=== PATIENT | male | born 1990 | race Caucasian/White ===

== ENCOUNTER 2016-09-07 19:36 | Emergency (ER) | payer SELFPAY ==
[~2016-09-07] VITALS: Ht 180.3 cm; Wt 115.0 kg
[2016-09-07 19:38] VITALS: BP 140/82; PULSE 97; RESP 16; TEMP 97.9; O2SAT 98
[2016-09-07] MEDS ORDERED: ONDANSETRON HCL 4 MG/2 ML VIAL IV ONE (23:15)
[2016-09-07] MEDS ORDERED: SODIUM CHLOR 0.9% 1000 ML INJ 1,000 ML IV ONE (23:15)
[2016-09-07 23:44] LABS: AUTOMATED NEUTROPHIL # 3.8 TH/MM3 (1.8-7.7); BASOPHIL # 0.1 TH/MM3 (0-0.2); BASOPHIL % 0.9 % (0.0-2.0); EOSINOPHIL # 0.4 TH/MM3 (0-0.4); EOSINOPHIL % 4.5 % (0.0-4.0); HEMATOCRIT 44.1 % (39.0-51.0); HEMO FLAGS DIFF FINAL; LYMPHOCYTE # 2.5 TH/MM3 (1.0-4.8); MEAN CELL VOLUME 82.2 FL (80.0-100.0); MEAN CORPUSCULAR HEMOGLOBIN 28.1 PG (27.0-34.0); MEAN CORPUSCULAR HGB CONC 34.2 % (32.0-36.0); MONO % 17.6 % (0.0-8.0); PLATELET COUNT 240 TH/MM3 (150-450); RED BLOOD COUNT 5.37 MIL/MM3 (4.50-5.90); RED CELL DISTRIBUTION WIDTH 13.5 % (11.6-17.2); WHITE BLOOD COUNT 8.2 TH/MM3 (4.0-11.0)
[2016-09-08 00:03] LABS: ALT (GPT) 27 U/L (12-78); ANION GAP 8 MEQ/L (5-15); AST (GOT) 20 U/L (15-37); BICARBONATE 26.7 MEQ/L (21.0-32.0); BLOOD UREA NITROGEN 12 MG/DL (7-18); CHLORIDE 105 MEQ/L (98-107); GLOMERULAR FILTRATION RATE 125 ML/MIN (>89); MAGNESIUM 2.2 MG/DL (1.5-2.5); POTASSIUM 3.4 MEQ/L (3.5-5.1); SODIUM (NA) 140 MEQ/L (136-145)
[2016-09-08 00:05] LABS: ALKALINE PHOSPHATASE 45 U/L (45-117); TOTAL BILIRUBIN ADULT 0.3 MG/DL (0.2-1.0)
[2016-09-08] MEDS ORDERED: SODIUM CHLORID 0.9% 500 ML INJ 500 ML IV ONE (01:00)
[2016-09-08] MEDS ORDERED: ZOFR4TAB3 SL (01:08)
--- NOTE | 2016-09-08 01:08 | PD ---
HPI Chief Complaint: GI Complaint Time Seen by Provider: 23:07 Travel History International Travel<30 days: No Contact w/Intl Traveler<30days: No Traveled to known affect area: No History of Present Illness HPI The patient is a 26 year old male who presents to the [facility] emergency department with a history of vomiting and diarrhea that began 4 days ago. The patient is [place]-speaking only and is being translated by [employer]. The patient reports that he's had nausea and vomiting 3 today. He's had diarrhea every time he tries to eat or drink today. He reports that the stool is green in color. He denies any mucus or blood in the stool. He denies any sick contacts, foreign travel, antibiotic use. The patient reports having some abdominal cramping associated with these symptoms. He reports that the pain is in bilateral upper quadrants of the abdomen and midepigastric area. The patient denies any recent fevers cough, congestion, neck pain, chest pain, shortness of breath, urinary symptoms, or neurologic symptoms. PFSH Past Medical History Narrative Medical The patient's past medical history is reportedly none. Medical History: Denies Significant Hx Tetanus Vaccination: Unknown Past Surgical History Narrative Surgical The patient's past surgical history is reportedly none. Surgical History: No Previous Surgery Social History Alcohol Use: No Tobacco Use: Yes (3-4 cigarettes) Substance Use: No Allergies-Medications (Allergen,Severity, Reaction): Coded Allergies: No Known Allergies (Unverified , 09/07/16) Reported Meds & Prescriptions Reported Meds & Active Scripts Active Zofran Odt (Ondansetron Odt) 4 Mg Tab 4 Mg SL Q6HR PRN Review of Systems Except as stated in HPI: all other systems reviewed are Neg General / Constitutional: No: Fever Eyes: No: Visual changes HENT: No: Headaches Cardiovascular: No: Chest Pain or Discomfort Respiratory: No: Shortness of Breath Gastrointestinal: Positive: Nausea, Vomiting, Diarrhea, Abdominal Pain, Changes in Bowel Habits, No: Hematemesis, Hematochezia, Indigestion, Loss of Appetite Genitourinary: No: Dysuria Musculoskeletal: No: Pain Skin: No Rash Neurologic: No: Weakness Psychiatric: No: Depression Endocrine: No: Polydipsia Hematologic/Lymphatic: No: Easy Bruising Physical Exam Narrative General: The patient is a well-developed well-nourished male in no acute distress. Head and Neck exam: Head is normocephalic atraumatic. Eyes: EOMI, pupils are equal round and reactive to light. Nose: Midline septum with pink mucous membranes Mouth: Dentition unremarkable. Moist mucus membranes. Posterior oropharynx is not erythematous. No tonsillar hypertrophy. Uvula midline. Airway patent. Neck: No palpable lymphadenopathy. No nuchal rigidity. No thyromegaly. Cardiovascular: Regular rate and rhythm without murmurs, gallops, or rubs. Lungs: Clear to auscultation bilaterally. No wheezes, rhonchi, or rales. Abdomen: Soft, with tenderness on palpation in the midepigastric area and bilateral upper quadrants of the abdomen. No guarding, rebound, or rigidity. Normal bowel sounds are audible. No tenderness on palpation of McBurney's point. Negative Lua's sign. Extremities: No clubbing, cyanosis, or edema. No calf tenderness on palpation. Back: No spinous process tenderness to palpation. No costovertebral angle tenderness to palpation. Neurologic Exam: Grossly nonfocal. Skin Exam: No rash noted. Intact skin that is warm and dry. Data Data Last Documented VS Vital Signs Date Time Temp Pulse Resp B/P Pulse Ox O2 Delivery O2 Flow Rate FiO2 09/07/16 19:38 97.9 97 16 140/82 98 Orders Complete Blood Count With Diff (09/07/16 23:07) Comprehensive Metabolic Panel (09/07/16 23:07) Lipase (09/07/16 23:07) Urinalysis - C+S If Indicated (09/07/16 23:07) Magnesium (Mg) (09/07/16 23:07) Iv Access Insert/Monitor (09/07/16 23:07) Ecg Monitoring (09/07/16 23:07) Oximetry (09/07/16 23:07) Sodium Chlor 0.9% 1000 Ml Inj (Ns 1000 M (09/07/16 23:15) Ondansetron Inj (Zofran Inj) (09/07/16 23:15) Oral Rehydration (09/08/16 00:50) Sodium Chlorid 0.9% 500 Ml Inj (Ns 500 M (09/08/16 01:00) Ct Abd/Pel W Iv Contrast(Rout) (09/08/16 00:50) Iohexol 350 Inj (Omnipaque 350 Inj) (09/08/16 01:52) Labs Laboratory Tests Test 09/07/16 23:30 White Blood Count 8.2 TH/MM3 Red Blood Count 5.37 MIL/MM3 Hemoglobin 15.1 GM/DL Hematocrit 44.1 % Mean Corpuscular Volume 82.2 FL Mean Corpuscular Hemoglobin 28.1 PG Mean Corpuscular Hemoglobin 34.2 % Concent Red Cell Distribution Width 13.5 % Platelet Count 240 TH/MM3 Mean Platelet Volume 8.7 FL Neutrophils (%) (Auto) 46.0 % Lymphocytes (%) (Auto) 31.0 % Monocytes (%) (Auto) 17.6 % Eosinophils (%) (Auto) 4.5 % Basophils (%) (Auto) 0.9 % Neutrophils # (Auto) 3.8 TH/MM3 Lymphocytes # (Auto) 2.5 TH/MM3 Monocytes # (Auto) 1.4 TH/MM3 Eosinophils # (Auto) 0.4 TH/MM3 Basophils # (Auto) 0.1 TH/MM3 CBC Comment DIFF FINAL Differential Comment Sodium Level 140 MEQ/L Potassium Level 3.4 MEQ/L Chloride Level 105 MEQ/L Carbon Dioxide Level 26.7 MEQ/L Anion Gap 8 MEQ/L Blood Urea Nitrogen 12 MG/DL Creatinine 0.76 MG/DL Estimat Glomerular Filtration 125 ML/MIN Rate Random Glucose 80 MG/DL Calcium Level 8.7 MG/DL Magnesium Level 2.2 MG/DL Total Bilirubin 0.3 MG/DL Aspartate Amino Transf 20 U/L (AST/SGOT) Alanine Aminotransferase 27 U/L (ALT/SGPT) Alkaline Phosphatase 45 U/L Total Protein 7.5 GM/DL Albumin 3.9 GM/DL Lipase 96 U/L MDM Medical Decision Making Medical Screen Exam Complete: Yes Emergency Medical Condition: Yes Medical Record Reviewed: Yes Differential Diagnosis Viral versus bacterial gastroenteritis, versus electrolyte abnormality, versus dehydration, versus dyspepsia, versus pancreatitis, versus acute cholecystitis, versus biliary colic Narrative Course During the course of the patients emergency department visit, the patients history, examination, and differential diagnosis were reviewed with the patient. The patient had IV access obtained and blood work sent for analysis. The patient was placed on a rn cardiac with oximetry and blood pressure monitoring. A CT scan of the abdomen and pelvis has been ordered. The patient was provided normal saline 1 L IV fluid bolus, Zofran 4 mg IV, repeat normal saline 500 mL bolus was administered. The patient was started on oral rehydration therapy. The patients laboratory studies were reviewed and remarkable for a CBC that shows a white count of 8.2, hemoglobin 15.1, platelets 240 was 17.6 monocytes consistent with a viral gastroenteritis CMP is remarkable for potassium of 3.4, lipase 96. Potassium was supplemented orally. The patient was started on oral rehydration therapy which she tolerated well. Radiology studies were reviewed and remarkable for CT scan of the abdomen and pelvis showed no acute abnormality. The patient will be discharged home with a prescription for Zofran and instructions to push fluids with an electrolyte rich solution such as Gatorade or Pedialyte. The patient is resting comfortably and feels better, is alert and in no distress. The patients results and examination findings were discussed with the patient. The repeat examination is unremarkable and benign. The history, exam, diagnostic testing, and current condition do not suggest any significant pathology to warrant further testing, continued ED treatment, admission, or surgical evaluation at this point. The vital signs have been stable. The patient does not have uncontrollable pain, intractable vomiting, or other significant symptoms. The patient's condition is stable and appropriate for discharge. The patient will pursue further outpatient evaluation with a primary care physician or other designated or consulting physician as indicated in the discharge instructions. The patient expressed understanding and was agreeable with this plan. Diagnosis Primary Impression: Nausea vomiting and diarrhea Referrals: Primary Care Physician Patient Instructions: Acute Diarrhea (ED), Acute Nausea and Vomiting (ED), General Instructions Med/Other Pt SpecificInfo: Prescription(s) given Scripts Ondansetron Odt (Zofran Odt)4 Mg Tab4 Mg SL Q6HR PRN (Nausea/Vomiting) #7 TAB Ref 0 Prov:Cecelia Mckenzie MD 09/08/16 Disposition: 01 DISCHARGE HOME Condition: Stable Cecelia Mckenzie MD Sep 08, 2016 01:08
[2016-09-08] MEDS ORDERED: IOHEXOL 350 MG/ML 10 ML VIAL (for RAD DIAG) IV ONE (01:52)
--- NOTE | 2016-09-08 02:04 | RADRPT ---
EXAM DATE/TIME: 09/08/2016 01:41 [facility] COMPARISON: No previous studies available for comparison. INDICATIONS : Abdomen pain with vomiting past 4 days. IV CONTRAST: 97 cc Omnipaque 300 (iohexol) IV ORAL CONTRAST: No oral contrast ingested. RADIATION DOSE: 12.15 CTDIvol (mGy) MEDICAL HISTORY : None SURGICAL HISTORY : None. ENCOUNTER: Initial ACUITY: 4 - 6 days PAIN SCALE: 7/10 LOCATION: Bilateral abdomen TECHNIQUE: Volumetric scanning of the abdomen and pelvis was performed. Using automated exposure control and ad justment of the mA and/or kV according to patient size, radiation dose was kept as low as reasonably achievable to obtain optimal diagnostic quality images. FINDINGS: Mild gynecomastia. No pleural or pericardial effusions. Liver, gallbladder, spleen, pancreas, bilater al adrenal glands, bilateral kidneys are unremarkable. The urinary bladder and prostate unremarkable. There are no inflammatory changes seen within the abdomen or pelvis. No adenopathy or aneurysm. Lung bases are clear. Osseous structures are intact. CONCLUSION: No acute disease. Moreno Joshi MD on September 08, 2016 at 2:00 Board Certified Radiologist. This report was verified electronically.
[2016-09-08] MEDS ORDERED: POTASSIUM CHLORIDE 20 MEQ CONTROLLED RELEASE TAB PO SCH (09:00)
== END 2016-09-08 03:35 | disposition home or self-care (01) ==
LOC: NEPC 19:36
DX: R11.2 Nausea with vomiting, unspecified (principal); R19.7 Diarrhea, unspecified; R10.9 Unspecified abdominal pain; Z72.0 Tobacco use
CPT/HCPCS: 74177; 80053; 83690; 83735; 85025; 96374; 99284; J2405; J7030; J7040; Q9967